=== PATIENT | male | born 1945 | race Caucasian/White ===

== ENCOUNTER 2017-10-11 11:18 | Inpatient (IN) | END 2017-10-12 15:30 | disposition home or self-care (01) | DRG 882 | DX: F43.20 Adjustment disorder, unspecified (principal); N18.6 End stage renal disease; R45.851 Suicidal ideations; I12.0 Hypertensive chronic kidney disease with stage 5 chronic kidney disease or end stage renal disease; F43.10 Post-traumatic stress disorder, unspecified; H54.8 Legal blindness, as defined in USA; F32.9 Major depressive disorder, single episode, unspecified; E11.22 Type 2 diabetes mellitus with diabetic chronic kidney disease; D64.9 Anemia, unspecified; R45.850 Homicidal ideations; N40.0 Benign prostatic hyperplasia without lower urinary tract symptoms; E78.5 Hyperlipidemia, unspecified; F41.9 Anxiety disorder, unspecified; M19.90 Unspecified osteoarthritis, unspecified site; Z63.4 Disappearance and death of family member; Z91.15 Patient's noncompliance with renal dialysis; Z79.4 Long term (current) use of insulin; Z83.3 Family history of diabetes mellitus; Z79.899 Other long term (current) drug therapy ==